=== PATIENT | male | born 1935 | race Caucasian/White ===

== ENCOUNTER → 2016-10-15 | Outpatient (CLI) | payer MEDICARE, OTHER ==
--- NOTE | 2016-10-15 11:06 | REP ---
Clinical: History of chronic medical renal disease and urinary frequency. Technique: Real time owens scale ultrasound examination using curved array transducer. Findings: The bilateral kidneys are normal in contour, size, echogenicity, and reniform shape without hydronephrosis, nephrolithiasis, perinephric collection or renal mass lesion. Right kidney measures 10.5 x 3.6 x 4.6 cm without cystic changes. Left kidney measures nine per 5 x 4.5 x 4.6 cm with 1.3 cm lower pole cyst. The bladder is poorly distended during examination but without significant wall thickening or mass lesion. Prevoid bladder measures 5.7 x 3.6 x 2.3 cm (31 ml). Postvoid bladder measures 2.7 x 3.0 x 1.7 cm (9 ml). Postvoid residual equals 29%. Impression: 1. Relatively normal appearance the bilateral kidneys with left renal cyst. 2. Poor filling to the bladder with increased postvoid residual noted. Signed by Enrique Green MD 10/15/2016 10:57 A
== END ==
LOC: M RAD 10:02
PROVIDERS: ATTEND Internal Medicine Nephrology
DX: N18.4 Chronic kidney disease, stage 4 (severe) (principal); I12.9 Hypertensive chronic kidney disease with stage 1 through stage 4 chronic kidney disease, or unspecified chronic kidney disease; N28.1 Cyst of kidney, acquired